=== PATIENT | male | born 1985 | race Caucasian/White ===

== ENCOUNTER 2016-02-26 21:36 | Emergency (ER) | payer SELFPAY ==
[~2016-02-26] VITALS: Ht 180.3 cm; Wt 76.2 kg
[~2016-02-26 21:36] MED LIST: CLIN300C2 PO
[2016-02-26 21:39] VITALS: Ht 180.3 cm; Wt 76.2 kg
[2016-02-26] MEDS ORDERED: IBUP-1050 PO (21:59)
[2016-02-26] MEDS ORDERED: KETOROLAC TROMETHAMINE 30 MG/ML VIAL IV STA (22:03)
[2016-02-26] MEDS ORDERED: SODIUM CHLORIDE 0.9% 1000ML 1,000 ML IV STA (22:03)
[2016-02-26 22:15] LABS: BASO % 0.4 %; BASO ABS # 0.04 K/uL (0-0.2); COMPLETE YES; EOS % 2.4 %; HEMATOCRIT 41.4 % (42-52); IG% 0.9 %; LYMPH % 22.4 %; LYMPH ABS # 2.41 K/uL (1.2-3.4); MEAN CELL VOLUME 82.8 fL (80-100); MEAN CORPUSCULAR HEMOGLOBIN 28.8 pg (25-34); MEAN CORPUSCULAR HGB CONC 34.8 g/dl (32-36); MEAN PLATELET VOLUME 8.9 fL (7.4-10.4); MONO % 9.3 %; NEUT % 64.6 %; PLATELET COUNT 354 K/uL (130-400); WHITE BLOOD COUNT 10.74 K/uL (4.8-10.8)
[2016-02-26 22:31] LABS: BUN/CREATININE RATIO 17.8 (10-20); CALCIUM 8.8 mg/dl (8.5-10.1); POTASSIUM 3.8 mmol/L (3.5-5.1)
[2016-02-26 22:48] LABS: MANUAL MICROSCOPIC REQUIRED? NO; REVIEW REQ? NO; URINE APPEARANCE CLEAR (CLEAR); URINE BILIRUBIN NEG (NEG); URINE COLOR YELLOW; URINE NITRITE NEG (NEG); URINE SPECIFIC GRAVITY 1.001 (1.000-1.030); UROBILINOGEN NEG (NEG)
--- NOTE | 2016-02-26 22:49 | EMERGENCY ROOM VISIT NOTE ---
History Report prepared by Jose J: Cynthia Swift Under the Supervision of: Dr. Jorge Alberto Berg D.O. First contact with patient: 21:51 Chief Complaint: ABDOMINAL PAIN Stated Complaint: ABD PAIN Nursing Triage Summary: pt c/o abd pain mostly on the right History of Present Illness The patient is a 31 year old male who presents to the Emergency Room with complaints of intermittent middle abdominal pain that radiates to the right side starting 3 days [employer]. He currently rates the pain as a 7/10 in severity. The patient states that he has started having abdominal pain after suffering from several days of a sore throat and a fever. The patient states that he has still been experiencing fevers with his abdominal pain. The patient states he also has a loss of appetite, nausea, and increased thirst. He states that since starting to feel ill he has also experienced significant weight loss of 10-12 lbs.He denies any vomiting, back pain, blood in urine, penile discharge, testicular pain or any rashes. Source of History: patient Onset: 3 days [employer] Position: abdomen (middle radiates to right side.) Symptom Intensity: 7/10 Timing: intermittent Associated Symptoms: + fevers, + nausea, + sorethroat, No rash, No vomiting Note: Associated symptoms: 10-12 lb weight loss, loss of appetite, increased thirst. Patient denies blood in urine, penile discharge, testicular pain. Review of Systems See HPI for pertinent positives & negatives. A total of 10 systems reviewed and were otherwise negative. Past Medical & Surgical Medical Problems: (1) Strep tonsillitis Family History Diabetes mellitus Social History Smoking Status: Never Smoker Marital Status: Housing Status: lives with family Current/Historical Medications Scheduled Levofloxacin (Levaquin), 750 MG PO DAILY Scheduled PRN Ibuprofen (Advil), 400 MG PO Q6H PRN for Pain or Fever Allergies Coded Allergies: No Known Allergies (Unverified , 01/21/06) Physical Exam Vital Signs Date Time Temp Pulse Resp B/P Pulse Ox O2 Delivery O2 Flow Rate FiO2 02/26/16 23:40 37.4 69 18 155/92 100 Room Air 02/26/16 21:39 37.6 69 18 160/94 100 Room Air Physical Exam GENERAL: Patient is awake, alert, and in no acute distress. Patient is resting comfortably and showing no signs of anxiety EYES: The conjunctivae are clear. The pupils are round and reactive. EARS, NOSE, MOUTH AND THROAT: The nose is without any evidence of any deformity. Mucous membranes are moist tongue is midline. Cold sore noted on upper lip. NECK: The neck is nontender and supple. RESPIRATORY: Normal respiratory effort is noted there is no evidence of wheezing rhonchi or rales CARDIOVASCULAR: Regular rate and rhythm noted there no murmurs rubs or gallops normal S1 normal S2 GASTROINTESTINAL: Abdomen is mildly distended but soft, no specific guarding or rigidity noted. BACK: No midline tenderness or or step-off noted range of motion in flexion extension as well as rotation no signs of muscle spasm noted. Mild Right CVA tenderness to percussion. ROM intact MUSCULOSKELETAL/EXTREMITIES: There is no evidence of gross deformity full range of motion is noted in the hips and shoulders SKIN: There is no obvious evidence of any rash. There are no petechiae, pallor or cyanosis noted. NEUROLOGIC: Patient is awake alert and oriented x3 Medical Decision & Procedures ER Provider Diagnostic Interpretation: CT results as stated below per my review and radiologist interpretation. CT SCAN OF THE ABDOMEN AND PELVIS WITHOUT IV CONTRAST CLINICAL HISTORY: Right flank pain. COMPARISON STUDY: No priors. TECHNIQUE: CT scan of the abdomen and pelvis is performed from the lung bases to the proximal femora. Images are reviewed in the axial, sagittal, and coronal planes. IV contrast was not administered for this examination. Automated dose control exposure was utilized. CT DOSE: 343.35 mGy.cm FINDINGS: Lung bases: The heart is normal in size and without pericardial effusion. The lung bases are clear noting dependent atelectasis. Liver: The unenhanced liver is normal in size, contour, and attenuation. There is no intrahepatic biliary ductal dilatation. Findings calcified hepatic granulomas are observed. Gallbladder: Contracted. Spleen: The spleen is mildly enlarged, measuring 13.6 cm in length. Pancreas: Unremarkable. Adrenal glands: Unremarkable. Kidneys: The unenhanced kidneys are normal in size and without hydronephrosis. No renal calculi are identified. There is mild fullness of the right renal collecting system with nonspecific right-sided perinephric stranding. Minimal nonspecific perinephric stranding is seen on the left. There is no evidence of contour deforming renal mass lesion. Abdominal vasculature: The abdominal aorta is normal in course and caliber. Bowel: The small bowel and colon are normal in course and caliber. There is moderate colonic fecal retention. The appendix is well-visualized and normal. Peritoneum: There is no intraperitoneal free air or abdominal ascites. There is a fat-containing umbilical hernia. Lymphadenopathy: None. Pelvic viscera: The bladder, prostate, and seminal vesicles are normal as visualized. Skeletal structures: No lytic or blastic lesions are seen. IMPRESSION: 1. There is mild fullness the right renal collecting system with nonspecific right-sided perinephric stranding. No renal calculi or ureteral calculus is seen. This may represent the sequelae of a recently passed kidney stone or possibly urinary tract infection. Correlation with clinical findings and urinalysis will be required. 2. Moderate constipation. 3. Mild splenomegaly. Electronically signed by: Chuck Suero M.D. 02/26/2016 11:04 PM Dictated Date/Time: 02/26/2016 10:57 PM Laboratory Results 02/26/16 21:49 Red Blood Count 5.00, Mean Corpuscular Volume 82.8, Mean Corpuscular Hemoglobin 28.8, Mean Corpuscular Hemoglobin Concent 34.8, Mean Platelet Volume 8.9, Neutrophils (%) (Auto) 64.6, Lymphocytes (%) (Auto) 22.4, Monocytes (%) (Auto) 9.3, Eosinophils (%) (Auto) 2.4, Basophils (%) (Auto) 0.4, Neutrophils # (Auto) 6.93, Lymphocytes # (Auto) 2.41, Monocytes # (Auto) 1.00, Eosinophils # (Auto) 0.26, Basophils # (Auto) 0.04 02/26/16 21:49 Test 02/26/16 21:49 02/26/16 21:55 02/26/16 22:17 White Blood Count 10.74 K/uL (4.8-10.8) Red Blood Count 5.00 M/uL (4.7-6.1) Hemoglobin 14.4 g/dL (14.0-18.0) Hematocrit 41.4 % (42-52) Mean Corpuscular Volume 82.8 fL (80-100) Mean Corpuscular Hemoglobin 28.8 pg (25-34) Mean Corpuscular Hemoglobin Concent 34.8 g/dl (32-36) Platelet Count 354 K/uL (130-400) Mean Platelet Volume 8.9 fL (7.4-10.4) Neutrophils (%) (Auto) 64.6 % Lymphocytes (%) (Auto) 22.4 % Monocytes (%) (Auto) 9.3 % Eosinophils (%) (Auto) 2.4 % Basophils (%) (Auto) 0.4 % Neutrophils # (Auto) 6.93 K/uL (1.4-6.5) Lymphocytes # (Auto) 2.41 K/uL (1.2-3.4) Monocytes # (Auto) 1.00 K/uL (0.11-0.59) Eosinophils # (Auto) 0.26 K/uL (0-0.5) Basophils # (Auto) 0.04 K/uL (0-0.2) RDW Standard Deviation 38.5 fL (36.4-46.3) RDW Coefficient of Variation 12.8 % (11.5-14.5) Immature Granulocyte % (Auto) 0.9 % Immature Granulocyte # (Auto) 0.10 K/uL (0.00-0.02) Anion Gap 9.0 mmol/L (3-11) Est Creatinine Clear Calc Drug Dose 111.8 ml/min Estimated GFR () 114.1 Estimated GFR (Non- 98.5 BUN/Creatinine Ratio 17.8 (10-20) Calcium Level 8.8 mg/dl (8.5-10.1) Total Bilirubin 0.5 mg/dl (0.2-1) Direct Bilirubin 0.1 mg/dl (0-0.2) Aspartate Amino Transf (AST/SGOT) 15 U/L (15-37) Alanine Aminotransferase (ALT/SGPT) 20 U/L (12-78) Alkaline Phosphatase 72 U/L (45-117) Total Protein 8.5 gm/dl (6.4-8.2) Albumin 3.6 gm/dl (3.4-5.0) Lipase 165 U/L (73-393) Urine Color YELLOW Urine Appearance CLEAR (CLEAR) Urine pH 5.0 (4.5-7.5) Urine Specific [place] 1.001 (1.000-1.030) Urine Protein NEG (NEG) Urine Glucose (UA) NEG (NEG) Urine Ketones NEG (NEG) Urine Occult Blood 1+ (NEG) Urine Nitrite NEG (NEG) Urine Bilirubin NEG (NEG) Urine Urobilinogen NEG (NEG) Urine Leukocyte Esterase TRACE (NEG) Urine WBC (Auto) 5-10 /hpf (0-5) Urine RBC (Auto) 0-4 /hpf (0-4) Urine Hyaline Casts (Auto) 1-5 /lpf (0-5) Urine Epithelial Cells (Auto) 10-20 /lpf (0-5) Urine Bacteria (Auto) NEG (NEG) Bedside Glucose 102 mg/dl (70-99) Laboratory results per my review. Medications Administered Medications (Trade) Dose Ordered Sig/Betsy Route Start Time Stop Time Status Last Admin Dose Admin Sodium Chloride (Nss 1000ml) 1,000 ml @ 999 mls/hr Q1H1M STAT IV 02/26/16 22:03 02/26/16 23:03 DC 02/26/16 22:14 999 MLS/HR Ketorolac Tromethamine (Toradol Inj) 30 mg NOW STAT IV 02/26/16 22:03 02/26/16 22:10 DC 02/26/16 22:15 30 MG Levofloxacin (Levaquin Tab) 750 mg NOW ONCE PO 02/26/16 23:15 02/26/16 23:16 DC 02/26/16 23:15 750 MG ED Course 2200: The patient was evaluated in room C7. A complete history and physical examination were performed. 2203: Ordered Toradol Inj 30 mg IV, NSS 1,000 ml @ 999 mls/hr IV, 2315: Ordered Levofloxacin 750 mg PO. 2345: Upon reevaluation, the patient is resting comfortably. I discussed the results and treatment plan with him. He verbalized agreement of the treatment plan. The patient was discharged home. Medical Decision Differential diagnosis: Etiologies such as musculoskeletal, disc herniation, fracture, aortic disease, metastatic disease, cord compression, discitis, infection, renal colic, gastrointestinal, acute exacerbation of chronic back pain, sciatica, cauda equina, as well as others were entertained. Nursing notes reviewed. The patient is a 31-year-old male who presented to the emergency department for an evaluation of right flank pain. The patient also complained of frequency. Initially I thought his condition was secondary to a kidney stone however his urinalysis only showed some blood in his CAT scan didn't appear to be more consistent with pyelonephritis. It is also possible he may have briefly passed a kidney stone. He was given antibiotics in the emergency department. I discussed the patient's laboratory and radiographic studies with him. On subsequent reevaluation he was feeling much better. He was encouraged to drink plenty clear liquids and continue all medications as prescribed. Otherwise she was encouraged to follow-up with his primary care physician for further evaluation but return to the emergency department immediately if symptoms change worsen or the need arises. Impression Primary Impression: Pyelonephritis Scribe Attestation The scribe's documentation has been prepared under my direction and personally reviewed by me in its entirety. I confirm that the note above accurately reflects all work, treatment, procedures, and medical decision making performed by me. Departure Information Dispostion Home / Self-Care Prescriptions Levofloxacin (Levaquin) 750 Mg Tab 750 MG PO DAILY, #5 TAB Prov: Jorge Alberto Berg, DO 02/26/16 Referrals No Doctor, Assigned (PCP) Forms Call Back Authorization, HOME CARE DOCUMENTATION FORM, IMPORTANT VISIT INFORMATION Patient Instructions [facility] Additional Instructions Continue to drink plenty clear liquids. Continue using Motrin and Tylenol as directed for fever and body aches. Finish the entire course of the antibiotic. Follow-up with your family doctor soon as possible but return to the emergency department immediately if symptoms change worsen or the need arises.
--- NOTE | 2016-02-26 23:06 | DIAGNOSTIC IMAGING REPORT ---
CT SCAN OF THE ABDOMEN AND PELVIS WITHOUT IV CONTRAST CLINICAL HISTORY: Right flank pain. COMPARISON STUDY: No priors. TECHNIQUE: CT scan of the abdomen and pelvis is performed from the lung bases to the proximal femora. Images are reviewed in the axial, sagittal, and coronal planes. IV contrast was not administered for this examination. Automated dose control exposure was utilized. CT DOSE: 343.35 mGy.cm FINDINGS: Lung bases: The heart is normal in size and without pericardial effusion. The lung bases are clear noting dependent atelectasis. Liver: The unenhanced liver is normal in size, contour, and attenuation. There is no intrahepatic biliary ductal dilatation. Findings calcified hepatic granulomas are observed. Gallbladder: Contracted. Spleen: The spleen is mildly enlarged, measuring 13.6 cm in length. Pancreas: Unremarkable. Adrenal glands: Unremarkable. Kidneys: The unenhanced kidneys are normal in size and without hydronephrosis. No renal calculi are identified. There is mild fullness of the right renal collecting system with nonspecific right-sided perinephric stranding. Minimal nonspecific perinephric stranding is seen on the left. There is no evidence of contour deforming renal mass lesion. Abdominal vasculature: The abdominal aorta is normal in course and caliber. Bowel: The small bowel and colon are normal in course and caliber. There is moderate colonic fecal retention. The appendix is well-visualized and normal. Peritoneum: There is no intraperitoneal free air or abdominal ascites. There is a fat-containing umbilical hernia. Lymphadenopathy: None. Pelvic viscera: The bladder, prostate, and seminal vesicles are normal as visualized. Skeletal structures: No lytic or blastic lesions are seen. IMPRESSION: 1. There is mild fullness the right renal collecting system with nonspecific right-sided perinephric stranding. No renal calculi or ureteral calculus is seen. This may represent the sequelae of a recently passed kidney stone or possibly urinary tract infection. Correlation with clinical findings and urinalysis will be required. 2. Moderate constipation. 3. Mild splenomegaly. Electronically signed by: Chuck Suero M.D. 02/26/2016 11:04 PM Dictated Date/Time: 02/26/2016 10:57 PM
[2016-02-26] MEDS ORDERED: LEVOFLOXACIN 250 MG TAB PO ONE (23:15)
[2016-02-26] MEDS ORDERED: LEVO1TAB35 PO (23:15)
[2016-02-26 23:40] VITALS: BP 155/92; PULSE 69; TEMP 37.4; O2SAT 100
== END 2016-02-26 23:56 | disposition home or self-care (01) ==
LOC: C.EDB 21:38 → C.EDC 23:56
DX: N12 Tubulo-interstitial nephritis, not specified as acute or chronic (principal); Z83.3 Family history of diabetes mellitus